=== PATIENT | female | born 1945 | race Caucasian/White ===

== ENCOUNTER 2017-08-22 17:34 | Inpatient (IN) | payer OTHER ==
[~2017-08-22] VITALS: Ht 165.1 cm; Wt 47.4 kg
--- NOTE | ~2017-08-22 | HC ---
[facility] [place] [address] CONSULTATION Name: DEBORHA KESSLER Room #: 204- ADM IN M.R.#: [id number] Admission: 08/22/17 Attend Phys: Gerard Patel MD Discharge: Date of : 49 Report #: [id number] THIS REPORT FOR: //name// CC: Gerard Patel FAM physician/PCP DATE OF SERVICE: 08/23/2017 ATTENDING PHYSICIAN: Dr. Emerson. CONSULTATION REQUESTED BY: Gerard Patel MD REASON FOR CONSULTATION: Leukocytosis, lactic acidosis. HISTORY OF PRESENT ILLNESS: The patient is a 71-year-old white woman, transferred to [facility] from [facility] where she was again readmitted on 08/16/2017 with nausea, vomiting, diarrhea with recurrent positive C. difficile toxin assay, leukocytosis, lactic acidosis, seen by Dr. Arnie Ulrich and subsequently because of failure to improve transferred to [facility]. During that hospitalization, the patient was found to have an abnormal CT scan of the chest with bilateral pleural effusion, possible atelectasis, pneumonia. She also has a positive stool for C. difficile toxin assay. The CT scan of abdomen and pelvis revealed diverticulosis, but no diverticulitis. An echocardiogram is abnormal and finding of ventricular wall dysfunction is detected. Her lactic acidosis improved, but persisted for several days despite antibiotics and fluids. At present, the patient is mainly complaining of total anorexia and some 20+ pound weight loss. She is unable to tolerate much of anything by mouth. She has intermittent abdominal pain and diarrheal problem has improved compared to previously. Workup had also included EGD and colonoscopy and the findings were normal. DRUG ALLERGIES: CIPRO, CODEINE, SULFA. PAST MEDICAL HISTORY: Cardiomyopathy, unclear etiology, ejection fraction 30-35% with left ventricular wall motion abnormalities, mitral regurgitation, moderate tricuspid regurgitation. She has recurrent Clostridium difficile colitis. She is status post hysterectomy and cholecystectomy in the past. She was diagnosed some 10-12 years ago to have Crohn disease by her primary physician. She has no recollection as to whether a cementer helper was involved in that diagnosis. She is status post bilateral cataract surgery, kyphoplasty, tubal ligation. SOCIAL HISTORY: See H and P. [facility] [address] [place] [address] CONSULTATION Name: DEBORAH KESSLER Room #: 204-[facility] IN .R.#: [id number] Admission: 08/22/17 Attend Phys: Gerard Patel MD Discharge: Date of : 49 Report #: [id number] FAMILY HISTORY: See H and P. REVIEW OF SYSTEMS: As above. PHYSICAL EXAMINATION: GENERAL: Chronically ill-appearing woman. VITAL SIGNS: Temperature 97.4, pulse 79, respirations 18, BP 152/108, height 5 feet 5 inches, weight 116.6 pounds, O2 saturation 96% on room air. HEENMT: Head normocephalic, atraumatic. Pupils reactive. Mouth: Dry mucous membranes, coated tongue. No thrush. NECK: Supple, no thyromegaly. BREASTS: Deferred. LUNGS: Decreased breath sounds at bases. HEART: S1, S2. No gallops. ABDOMEN: Infraumbilical laparotomy scar, soft, no palpable masses, no megaly, no abnormal tenderness. EXTREMITIES: No clubbing, cyanosis. NEUROLOGIC: Grossly within normal limits. LABORATORY DATA: At the referring hospital, on 08/16/2017, the stool is positive for C. difficile toxin. BUN and creatinine were essentially normal. The patient has lactic acidosis with lactic acid of 4.4 millimoles per liter on 08/21/2017. Here at [facility], the laboratory data indicate the following: Sodium 131, potassium 2.9, CO2 of 19, BUN 16, creatinine 1.3, glucose 126, alkaline phosphatase 354, albumin 1.9 g/dL. Lactic acid remains elevated at 3.4 and 3.8 millimoles per liter. White blood cell count 13,400, hemoglobin 12.9 g/dL, platelets 224,000. The white blood cell count differential revealed 86% segmented neutrophils. TSH normal. No radiology evaluation available at [facility], I will review findings from [facility] with radiologist. ASSESSMENT: 1. Persistent leukocytosis, question etiology. 2. Lactic acidosis. 3. Severe malnutrition. 4. Recurrent Clostridium difficile colitis. 5. Colonic diverticula. 6. Nausea, question etiology, question secondary to lactic acidosis versus Flagyl. 7. Pleural effusion and possible pneumonia. 8. Cardiomyopathy with abnormal echocardiogram and wall motion abnormalities. SUGGESTIONS AND RECOMMENDATIONS: The patient not toxic looking and abdomen not tender, consequently favor discontinuation of Flagyl, which may worsen her nausea. I will review CT scan chest, abdomen and pelvis and for time being should continue coverage with Zosyn. We will continue coverage with vancomycin [facility] [address] [place] [address] CONSULTATION Name: DEBORAH KESSLER Room #: 204-P ADM IN M.R.#: [id number] Admission: 08/22/17 Attend Phys: Gerard Patel MD Discharge: Date of : 49 Report #: [id number] for this recurrent Clostridium difficile colitis. Monitor ESR, CRP, procalcitonin. Since she has cardiomyopathy and possible coronary artery disease, possibility of ischemic bowel must be entertained and this must be ruled out. Dr. Patel, thank you for requesting my suggestions in the care of your patient. <ELECTRONICALLY SIGNED> By: Ramone Hoang MD 08/24/17 1151 1113 1445 Ramone Hoang MD /nt
--- NOTE | ~2017-08-22 | CNG ---
[facility] [place] [address] CYTO-NONGYN REPORT PROCEDURE Name: DEBORAH KESSLER Room #: 204-P [facility] IN M.R.#: [id number] Admission: 08/22/17 Date of : 49 Discharge: 08/28/17 Report #: [id number] Path Case #: [id number] CYTOPATHOLOGY REPORT COLLECTION DATE: 08/26/2017 RECEIVED DATE: 08/28/2017 SUBMITTING PHYS: Dr. Gena Jose OTHER PHYS: Dr. Anurag Patel M.D. CLINICAL HISTORY: Sepsis, weight loss, decreased appetite, diarrhea, SOA, pneumonia SPECIMEN(S) RECEIVED: A.Pleural fluid * * * * * * * * * * * * FINAL DIAGNOSIS: A. Pleural fluid: - No malignant cells identified. Scant cellularity. Few reactive mesothelial cells are present. PATHOLOGIST: Yumiko Guerrero M.D. REPORT ELECTRONICALLY SIGNED BY: Yumiko Guerrero M.D. DATE/TIME: 08/29/2017 13:31 * * * * * * * * * * * * GROSS PATHOLOGY: A. Pleural fluid: The specimen is submitted unfixed, labeled "Deborah Kessler". Received by the Cytology Department is 20 mL of clear yellow fluid. One ThinPrep slide and a formalin fixed cell block were prepared. (lg 08.28.2017) TRACTOR TRAILER TECHNICIAN(S): LEON Mendoza([facility]) INITIAL CPT CODE(S): A; 83870, 69588 Professional services performed by [facility] at [facility] [address] , [place] [address] Technical services performed by [facility] at [address] [place] [address]., [address], [place] [address]. [facility] [address] [place] [address], [address] [place] [address] [facility] [address] [place] [address] CYTO-NONGYN REPORT PROCEDURE Name: DEBORAH KESSLER Room #: 204-P [facility] IN M.R.#: [id number] Admission: 08/22/17 Date of : 49 Discharge: 08/28/17 Report #: [id number] Path Case #: [id number] PHONE: [phone] DIRECTOR: Luis Carlos Alamo M.D. * * * END OF REPORT * * *
--- NOTE | ~2017-08-22 | HC ---
[facility] [place] [address] CONSULTATION Name: DEBORAH KESSLER Room #: 204-P [facility] IN M.R.#: [id number] Admission: 08/22/17 Attend Phys: Gerard Patel MD Discharge: 08/28/17 Date of : 47 Report #: [id number] THIS REPORT FOR: //name// CC: Gerard Patel [facility] physician/PCP DATE OF SERVICE: 08/23/2017 REASON FOR CONSULTATION: Pleural effusions. IMPRESSION: 1. Pleural effusions. 2. Probable chronic obstructive pulmonary disease. 3. Tobacco use. 4. Cardiomyopathy. 5. Clostridium difficile. 6. Hypertension. 7. Question confusion. 8. Protein calorie malnutrition. 9. Lactic acidosis. PLAN: 1. CT head, chest x-ray, may do decubitus films, aerosol therapy. 2. DVT and ulcer prophylaxis per primary. HISTORY OF PRESENT ILLNESS: A 71-year-old female with history of cardiomyopathy, was at [facility] and treated for C. diff, had EGD, colonoscopy showed inflammation, has had progressive lower extremity edema. The patient with progressive shortness of breath. No history of DVT or pulmonary embolus. No sputum production. PAST MEDICAL HISTORY: ALLERGIES: TO SULFA, CODEINE AND CIPRO. MEDICATIONS: Include Pepcid, DuoNeb, Zosyn, albuterol, metoprolol. PAST SURGICAL HISTORY: Surgeries in the past include tubal ligation, cholecystectomy, D and C, kyphoplasty, bilateral cataract repair. FAMILY HISTORY: Heart disease, COPD, diabetes, cancer. SOCIAL HISTORY: Positive tobacco. Rare EtOH. No drugs of abuse. PHYSICAL EXAMINATION: VITAL SIGNS: Temperature 98.6, pulse 76, respirations 18, BP 159/110. EYES: Negative icterus. [facility] [address] [place] [address] CONSULTATION Name: DEBORAH EKSSLER Room #: [facility] IN .R.#: [id number] Admission: 08/22/17 Attend Phys: Gerard Patel MD Discharge: 08/28/17 Date of : 47 Report #: [id number] NECK: Trachea midline. LUNGS: Decreased. Few crackles. HEART: Regular. ABDOMEN: Bowel sounds present, distended. EXTREMITIES: Showed positive edema. LABORATORY DATA: TSH 0.495. White count 13.4, hemoglobin 12.9, platelets 224. CRP 14.6. BNP 59,716. ESR 7. Procalcitonin 0.22. Reviewed CT and chest x-ray with Dr. Jolley. CT head from [facility] had bilateral effusions and previously no definite infiltrate on the right. We will follow closely with you. <ELECTRONICALLY SIGNED> By: Gena Jose MD 09/20/17 2219 2046 2132 A. Guillermo Jose MD /nt
--- NOTE | ~2017-08-22 | HC ---
[facility] [place] [address] CONSULTATION Name: DEBORAH KESSLER Room #: 204-P [facility] IN M.R.#: [id number] Admission: 08/22/17 Attend Phys: Gerard Patel MD Discharge: 08/28/17 Date of : 47 Report #: [id number] THIS REPORT FOR: //name// CC: Gerard Patel [facility] physician/PCP DATE OF SERVICE: 08/28/2017 HISTORY OF PRESENT ILLNESS: The patient is a 71-year-old white female, originally admitted with diarrhea, abdominal pain and sepsis. She was noted to have pleural effusion. She has been diagnosed with recurrent Clostridium difficile colitis. She also has cardiomyopathy and protein-calorie malnutrition. Gastroenterology is involved. She does have dysphagia and is on nectar-thickened liquid diet. She has medical complexity with generalized debilitation. Infectious Disease is involved and she is also being seen by Pulmonary Medicine with bilateral effusions, right was tapped, noted to look like a transudate. We are seeing her in rehabilitation medicine consultation. PAST MEDICAL HISTORY: Osteoarthritis, hypertension, irritable bowel syndrome, anxiety, depression, compression fracture. PAST SURGICAL HISTORY: Bilateral cataract repair, cholecystectomy, bilateral tubal ligation, D and C, and kyphoplasty. ALLERGIES: SULFA, CIPRO AND CODEINE. MEDICATIONS: Please see the full medication listing. SOCIAL HISTORY: She lives in a mobile home, 5 steps and neighbors involved. Apparently estranged from her daughter. HABITS: Tobacco 1 pack of cigarettes per day, smoking since the age of 40. Denies any drug usage. FAMILY HISTORY: Significant for COPD, coronary artery disease in her mother, CHF in her mother. REVIEW OF SYSTEMS: Complains of some shortness of breath with increased activity. No current complaints of abdominal pain. No chest pain. Denied any focal extremity pain complaints. Does not like the current diet. Complains of overall generalized weakness. PHYSICAL EXAMINATION: GENERAL: A 71-year-old, rather small statured, thin, white female in no obvious distress. VITAL SIGNS: Last recorded temperature 36.5, pulse 80, respirations 18, blood [address] [address] CONSULTATION Name: DEBORAH KESSLER Room #: 204-P [facility] IN M.R.#: [id number] Admission: 08/22/17 Attend Phys: Gerard Patel MD Discharge: 08/28/17 Date of : 47 Report #: [id number] pressure 162/86. NEUROLOGIC: She is alert, will follow basic 1 step commands. Facies appeared to be symmetric. She has functional range of motion of both upper extremities with strength grade 4-/5. DTRs are trace to 1. Tone appeared to be intact. Lower extremities, no focal calf swelling, functional range of motion with strength grade 4- to 3+/5. DTRs are trace to 1. No significant distal lower extremity edema. She is contact guard for sit to stand. She did ambulate 25 feet min assist with a front-wheeled walker. ASSESSMENT: A 71-year-old white female with the following problem list: 1. Medical complexity with generalized debilitation. 2. Dysphagia, currently on mechanical soft nectar-thickened liquids. 3. Bilateral effusions with the right tapped. 4. Clostridium difficile colitis. 5. Cardiomyopathy. 6. Protein-calorie malnutrition. PLAN: The patient is a candidate for an acute in-hospital and inpatient rehabilitation stay. She does have significant medical complexity and is being followed by multiple consulting physicians with Infectious Disease, Pulmonary Medicine as well as Internal Medicine and Gastroenterology involved. She does have dysphagia noted with the nectar-thickened liquids. We will check on bed availability issues and follow along regarding potential acute inpatient rehabilitation transfer. <ELECTRONICALLY SIGNED> By: Johny Goins MD 09/29/17 1408 1204 8140 Johny Goins MD /nt
--- NOTE | ~2017-08-22 | H ---
[facility] [place] [address] HISTORY AND PHYSICAL Name: DEBORAH KESSLER Room #: 204-P ADM IN M.R.#: [id number] Admission: 08/22/17 Attend Phys: Gerard Patel MD Discharge: Date of : 47 Report #: [id number] THIS REPORT FOR: //name// CC: FAM physician/PCP Anurag Emerson DATE OF SERVICE: 08/22/2017 ATTENDING PHYSICIAN: Dr. Patel. PRIMARY CARE PHYSICIAN: Dr. Anurag Leyva. CHIEF COMPLAINT: Diarrhea and new congestive heart failure. HISTORY OF PRESENT ILLNESS: The patient is a 71-year-old female, who has been admitted in [place] for the last few days, initially for diarrhea. She ended up having C. diff. She does have a history of C. diff in early July after taking antibiotics the end of June. She had been off Flagyl for a while and at some point had an EGD and colonoscopy and her test from the colonoscopy did not show any further C. diff. She says she has had diarrhea for the last 2-1/2 months and a 27-pound weight loss associated with it. She has had decreased appetite with anorexia. When she was admitted at [place], she had severe protein-calorie malnutrition. It was also mentioned that she had some ketosis, felt to be due to starvation and a failure to thrive picture. She tested positive again for C. diff during that admission. She states she has been incontinent of small amounts of loose stools at least 10 times in the last 24 hours. She is being treated with IV Flagyl and oral vancomycin. She also developed mild acute kidney injury. Her RADHA inhibitor was discontinued. For some reason or another, she had an echocardiogram which ended up showing an EF of 35% with severe mitral regurgitation, this was new onset. She had been having some lower extremity edema. Her CT of the abdomen done at [place] showed bilateral pleural effusions or pneumonia with subcutaneous edema versus early anasarca or congestive heart failure, in the abdomen there were no signs of obstruction. The patient denies any history of CHF or coronary artery disease. She has not been having any chest pain. She denies any shortness of breath. She has had cough and was started on Zosyn based on the chest x-ray and CT findings for pneumonia. Blood cultures had been negative. Her lactate has been increasing over the last few days, was up to 5.6 today and her white blood cell count is 16.5. She had been on Zosyn as well as the treatment for C. diff. She was transferred here for heart failure and possible renal evaluation. PAST MEDICAL HISTORY: Osteoarthritis, hypertension, IBS, anxiety, depression, compression fracture. PAST SURGICAL HISTORY: Bilateral cataract repair, cholecystectomy, bilateral tubal ligation, D and C, and kyphoplasty. [facility] [address] [place] [address] HISTORY AND PHYSICAL Name: DEBORAH KESSLER Room #: 204-P ADM IN M.R.#: [id number] Admission: 08/22/17 Attend Phys: Gerard Patel MD Discharge: Date of : 49 Report #: [id number] ALLERGIES: SULFA, CIPRO AND CODEINE. HOME MEDICATIONS: Per [facility], she was currently on Zosyn, oral vancomycin, IV Flagyl, AA nebulizer treatment, heparin for prophylaxis, IV hydralazine, metoprolol 50 mg p.o. b.i.d., Tylenol p.r.n., Ativan 1 mg q.6 hours p.r.n., BuSpar 7.5 mg b.i.d., sodium bicarbonate 50 mEq in D5W at 100 mL an hour, lactobacillus b.i.d., Zofran p.r.n. and famotidine mg p.o. daily. SOCIAL HISTORY: The patient is a . She lives at home alone. She smokes 1 pack of cigarettes per day. She has been smoking since the age of 40. Denies any drug use. She drinks alcohol rarely. She normally ambulates with a walker. FAMILY HISTORY: Significant for COPD, coronary artery disease in her mother, and congestive heart failure in her mother. REVIEW OF SYSTEMS: Twelve-point review of systems was reviewed with the patient and otherwise negative unless stated in the HPI. PHYSICAL EXAMINATION: GENERAL: The patient is an alert female, in no acute distress. VITAL SIGNS: Temperature 36.4, heart rate 81, respirations 20, blood pressure 161/104, oxygen 100% on room air. HEENT: PERRLA. Sclerae nonicteric. Oral mucosa is pink and dry. NECK: Supple, no JVD noted. CARDIAC: Normal S1, S2. No murmurs, rubs or gallops. RESPIRATORY: Breath sounds are clear bilaterally. She is diminished in both bases. Breathing is nonlabored. ABDOMEN: Round, soft, nontender, nondistended with positive bowel sounds. VASCULAR: She does have 1+ bilateral lower extremity edema. Pedal pulses are 2+. NEUROLOGIC: The patient is alert and oriented x 3. Speech is clear. She is answering questions appropriately and able to follow commands. She is moving all extremities equally. I did not have a gait assessed. PSYCHIATRIC: The patient is calm and cooperative, but overall very flat affect. ASSESSMENT AND PLAN: 1. Clostridium difficile colitis. Continue with Flagyl and vancomycin oral. We will try to get another Clostridium difficile specimen and Infectious Disease is consulted. 2. New onset congestive heart failure, this is noted on echo today. Consult Cardiology. Continue metoprolol and previously her RADHA inhibitor had been discontinued since her creatinine was rising. 3. Acute kidney injury. The patient denies any prior kidney problems. We will continue with gentle hydration since she does have heart failure and repeat labs in the morning. [facility] [address] [place] [address] HISTORY AND PHYSICAL Name: DEBORAH KESSLER Room #: 204-P ADM IN .R.#: [id number] Admission: 08/22/17 Attend Phys: Gerard Patel MD Discharge: Date of : 49 Report #: [id number] 4. Leukocytosis and lactic acidosis. This may be due to infection. We will continue with Zosyn for pneumonia and treatment for Clostridium difficile and consult Infectious Disease. Check blood cultures. 5. Protein-calorie malnutrition. It was mentioned the patient may have failure to thrive. She has anorexia and states nothing sounds good, she does not feel like eating. We will have dietary evaluate. It was mentioned in [place] that she may need a Dobhoff placed for tube feeding temporarily. 6. Tobacco abuse. The patient has been advised to quit. She denies the need for nicotine patch. 8. Deep venous thrombosis prophylaxis. Place SCDs. We will continue to follow the patient closely throughout the hospitalization and make changes based on clinical status. <ELECTRONICALLY SIGNED> By: TERA Samaniego 08/23/17 0757 [id number] 0644 TERA Samaniego /delmi
--- NOTE | ~2017-08-22 | CATHLAB ---
[facility] [place] [address] INVASIVE PROCEDURE REPORT Name: DEBORAH KESSLER Room #: 204-P ADM IN M.R.#: [id number] Admission: 08/22/17 Attend Phys: Gerard Patel MD Discharge: Date of : 49 Date of Service: 08/24/17 1428 Report #: [id number] THIS REPORT FOR: //name// APPROVED REPORT Patient Details Patient Status: In-Patient Room #: The patient is a 71 year-old female Event Personnel Ramana Elkins Lsat Instructor, Betty Silva, Johny Mortensen Penny, Wes RN Procedures Performed Left Heart Cath w/or w/o Coronaries [id number] [facility] Procedure Narrative The Right Groin^ was infiltrated with 1% Lidocaine subcutaneous anesthesia. A PINNACLE 4FR Sheath #[id number] sheath was inserted into the RFA^. Coronary angiography was performed using coronary diagnostic catheters. The right coronary system was accessed and visualized with a JR4 catheter. The left coronary system was accessed and visualized with a JL4 catheter. The left ventricle was accessed and visualized with a PIGTAIL catheter. Left ventricular/Aortic Valve gradient assessed via catheter pullback. Left ventriculogram was performed in 30 degree projection. Hemostasis was obtained with manual pressure following sheath removal without any complications. The patient tolerated the procedure well and there were no complications associated with the procedure. There was no hematoma. Intraoperative Conscious Sedation Sedation start time: 12:42 Case end Time: 12:55 Versed 2 mg Fluoro Time: 2.09 minutes Dose: DAP 1288.30 cGycm2 171 mGy Contrast Type and Amount: Omnipaque 40 ml Coronary Angiography The patient's coronary anatomy is right dominant. Diagnostic Cath Left Main Normal origin moderate caliber bifurcates that anterior [facility] [address] [place] [address] INVASIVE PROCEDURE REPORT Name: KELY KESSLERA Room #: 204-P [facility] IN ..#: [id number] Admission: 08/22/17 Attend Phys: Gerard Patel MD Discharge: Date of : 49 Date of Service: 08/24/17 1428 Report #: [id number] descending left circumflex free of high-grade disease LAD Moderate caliber type III vessel which gives rise to septal and diagonal branch early on. The vessel then continues in the anterior interventricular sulcus giving rise to diagonal and septal branches as it terminates in the posterior aspect of the left ventricle. No significant high-grade lesions are identified although the LAD tapers in its course Diagonal 1 Small-caliber vessel that trifurcates in its midportion into smaller branches. One of the branches appears to have some diffuse disease it is quite small at less than half a millimeter in diameter Circumflex Moderate to large caliber vessel courses in the AV groove giving rise to a lateral wall and a posterior lateral wall marginal. No significant high-grade lesions are noted in its course OM1 Moderate caliber vessel coursing along the lateral aspect of ventricle without significant stenotic lesions terminal third is tortuous but without stenosis OM2 Moderate caliber vessel coursing posteriorly towards the apex terminates short of the apex but no significant high-grade obstructive lesions present Right Coronary Moderate caliber vessel of normal origin and courses in the AV groove. The acute margin he gives rise to a miniscule RV marginal branch. The vessel proper continues posterior to the crux where a posterior descending artery arises is a small in size as is the distal circulation but no high-grade obstructive lesions present R PDA Small-caliber vessel without significant obstructive lesions Left Ventriculography Left Ventriculography was not performed. Overall left ventricular systolic function is depressed with a segment bent of hypokinesis involving the mid anterior wall Hemodynamics The aortic pressure is 156/82 mmHg with a mean of 110 mmHg. The left ventricular pressure is 166/20 mmHg with a mean of mmHg. The left ventricular end diastolic pressure is 39 mmHg. There was no gradient across the aortic valve upon pullback. Pullback from the left ventricle to the aorta revealed no gradient across the aortic valve. Conclusion 1. Minimal coronary artery disease principally involving a diminutive [facility] [address] [place] [address] INVASIVE PROCEDURE REPORT Name: DEBORAH KESSLER Room #: 204-P ADM IN M.R.#: [id number] Admission: 08/22/17 Attend Phys: Gerard Patel MD Discharge: Date of : 49 Date of Service: 08/24/17 1428 Report #: [id number] branch of the first diagonal branch of the LAD 2. Decreased left ventricular systolic function with a segmental abnormalities of the mid anterior wall 3. Abnormal he would dynamic so with markedly elevated left ventricular end-diastolic pressure <ELECTRONICALLY SIGNED> By: Ramana Elkins MD 08/24/17 1428 1428 1428 Ramana Elkins MD /INF
[2017-08-22 20:10] VITALS: BP 161/104
[2017-08-23 00:45] VITALS: BP 147/89
[2017-08-23 02:46] LABS: HEMATOCRIT 37.4 % (37.0-47.0); HEMOGLOBIN 12.9 gm/dL (12.0-15.0); MCH 32.1 pg (26.0-34.0); MCHC 34.5 g/dL (28.0-37.0); MCV 93.1 fL (80.0-100.0); PLATELET COUNT 224 thou/uL (150-400); RBC 4.02 mil/uL (4.20-5.00); WBC 13.4 thou/uL (4.0-11.0)
[2017-08-23 02:54] LABS: ALBUMIN 1.9 g/dL (3.4-5.0); CALCIUM 7.8 mg/dL (8.5-10.1); CREATININE 1.3 mg/dL (0.6-1.0); MAGNESIUM 1.2 mg/dL (1.8-2.4); TOTAL PROTEIN 5.3 g/dL (6.4-8.2)
[2017-08-23 02:58] LABS: POTASSIUM 2.9 mmol/L (3.5-5.1)
[2017-08-23 04:00] VITALS: BP 130/82
[2017-08-23 06:30] LABS: ABSOLUTE NEUTROPHILS 11.5 thou/uL (1.4-8.2); ATYPICAL LYMPHS 2 %; NUCLEATED RBCS 1 /100WBC
[2017-08-23 07:43] VITALS: BP 152/108
[2017-08-23 13:21] VITALS: BP 157/110
[2017-08-23 16:40] VITALS: BP 159/110
[2017-08-23 17:57] LABS: PCO2 21.1 mmHg (35.0-45.0); PO2 100.9 mmHg (80.0-100.0); pH 7.572 (7.360-7.450); sO2 98.4 % (92.0-98.0)
[2017-08-23 20:00] VITALS: BP 160/97
[2017-08-24 01:42] VITALS: BP 150/63
[2017-08-24 03:19] LABS: HEMATOCRIT 35.1 % (37.0-47.0); HEMOGLOBIN 11.7 gm/dL (12.0-15.0); MCH 32.3 pg (26.0-34.0); MCHC 33.3 g/dL (28.0-37.0); MCV 97.1 fL (80.0-100.0); RBC 3.61 mil/uL (4.20-5.00); WBC 10.8 thou/uL (4.0-11.0)
[2017-08-24 03:26] LABS: CALCIUM 7.2 mg/dL (8.5-10.1); CREATININE 1.2 mg/dL (0.6-1.0); POTASSIUM 3.2 mmol/L (3.5-5.1)
[2017-08-24 03:33] LABS: ALBUMIN 1.7 g/dL (3.4-5.0); DIRECT BILIRUBIN 0.4 mg/dL (<0.1-0.3); TOTAL BILIRUBIN 0.9 mg/dL (<0.1-1.0); TOTAL PROTEIN 4.6 g/dL (6.4-8.2)
[2017-08-24 09:30] LABS: ABSOLUTE NEUTROPHILS 8.6 thou/uL (1.4-8.2); METAMYELOCYTES 1 %; MYELOCYTES 1 %
[2017-08-24 11:51] VITALS: BP 135/91
[2017-08-24 14:22] LABS: PLATELET COUNT 194 thou/uL (150-400)
[2017-08-24 14:49] VITALS: BP 147/98
[2017-08-24 20:33] VITALS: BP 157/95
[2017-08-25 04:00] VITALS: BP 150/95
[2017-08-25 04:26] LABS: HEMOGLOBIN 11.2 gm/dL (12.0-15.0); MCH 32.3 pg (26.0-34.0); MCHC 34.9 g/dL (28.0-37.0); MCV 92.5 fL (80.0-100.0); RBC 3.46 mil/uL (4.20-5.00); RDW 14.3 % (10.5-14.5)
[2017-08-25 04:41] LABS: ALBUMIN 1.6 g/dL (3.4-5.0); CALCIUM 7.5 mg/dL (8.5-10.1); CREATININE 0.8 mg/dL (0.6-1.0); TOTAL PROTEIN 4.8 g/dL (6.4-8.2)
[2017-08-25 04:45] LABS: POTASSIUM 2.8 mmol/L (3.5-5.1)
[2017-08-25 13:16] LABS: URINE BILIRUBIN NEGATIVE (Negative); URINE BLOOD NEGATIVE (Negative); URINE CLARITY CLEAR; URINE COLOR YELLOW; URINE GLUCOSE-RANDOM* NEGATIVE (Negative); URINE KETONES NEGATIVE (Negative); URINE LEUKOCYTES-REFLEX NEGATIVE (Negative); URINE NITRITE-REFLEX NEGATIVE (Negative); URINE PROTEIN (DIPSTICK) NEGATIVE (Negative); URINE SPECIFIC GRAVITY 1.025 (1.005-1.035); URINE UROBILINOGEN 0.2 E.U./dl (0.2-1.0)
[2017-08-25 19:36] VITALS: BP 153/93
[2017-08-26 03:42] VITALS: BP 167/97
[2017-08-26 05:34] LABS: HEMATOCRIT 32.2 % (37.0-47.0); HEMOGLOBIN 11.2 gm/dL (12.0-15.0); MCHC 34.8 g/dL (28.0-37.0); PLATELET COUNT 160 thou/uL (150-400); RDW 14.4 % (10.5-14.5); WBC 12.9 thou/uL (4.0-11.0)
[2017-08-26 05:45] LABS: INR 1.2; PROTIME 11.9 Seconds (9.3-11.4)
[2017-08-26 05:47] LABS: CALCIUM 7.1 mg/dL (8.5-10.1); CREATININE 0.9 mg/dL (0.6-1.0); POTASSIUM 3.6 mmol/L (3.5-5.1)
[2017-08-26 07:53] LABS: ABSOLUTE NEUTROPHILS 10.1 thou/uL (1.4-8.2); ANISOCYTOSIS 1+; TARGET CELLS FEW
[2017-08-26 07:54] LABS: HYPOCHROMASIA 1+
[2017-08-26 08:36] LABS: CLARITY CLEAR; COLOR YELLOW; SOURCE RIGHT CHEST; TOTAL VOLUME 53 mL
[2017-08-26 08:57] LABS: BF NUCLEATED CELLS 60; BF RBC 282
[2017-08-26 09:48] LABS: BF MACROPHAGE 66; BF NEUTROPHILS 21
[2017-08-26 11:12] LABS: SOURCE THORACENTESIS
[2017-08-26 19:36] VITALS: BP 134/81
[2017-08-26 23:50] VITALS: BP 143/83
[2017-08-27 04:10] VITALS: BP 160/84
[2017-08-27 05:09] LABS: HEMATOCRIT 29.8 % (37.0-47.0); HEMOGLOBIN 10.3 gm/dL (12.0-15.0); MCH 32.1 pg (26.0-34.0); MCHC 34.7 g/dL (28.0-37.0); MCV 92.3 fL (80.0-100.0); RBC 3.22 mil/uL (4.20-5.00); RDW 14.2 % (10.5-14.5); WBC 12.6 thou/uL (4.0-11.0)
[2017-08-27 05:31] LABS: CREATININE 1.1 mg/dL (0.6-1.0)
[2017-08-27 06:11] LABS: BODY FLUID ALBUMIN 0.3 g/dL (()); BODY FLUID AMYLASE 8 U/L (()); BODY FLUID GLUCOSE 98 mg/dL (()); BODY FLUID LDH 51 IU/L (()); BODY FLUID PROTEIN 0.8 g/dL (())
[2017-08-27 08:00] VITALS: BP 165/96
[2017-08-27 12:00] VITALS: BP 125/73
[2017-08-27 16:00] VITALS: BP 161/87
[2017-08-27 19:39] VITALS: BP 143/78
[2017-08-28 03:01] VITALS: BP 152/91
[2017-08-28 03:42] LABS: CALCIUM 7.4 mg/dL (8.5-10.1); CREATININE 1.1 mg/dL (0.6-1.0); POTASSIUM 3.2 mmol/L (3.5-5.1)
[2017-08-28 08:59] VITALS: BP 162/86
[2017-08-28 11:52] VITALS: BP 101/56
[2017-08-28 12:16] LABS: ALBUMIN 1.7 g/dL (3.4-5.0); DIRECT BILIRUBIN 0.3 mg/dL (<0.1-0.3); TOTAL BILIRUBIN 1.1 mg/dL (<0.1-1.0); TOTAL PROTEIN 4.9 g/dL (6.4-8.2)
[2017-08-28 15:53] VITALS: BP 124/77
[2017-08-28] MEDS ORDERED: VANCOMYCIN HCL10 GM PO (16:31)
[2017-08-28] MEDS ORDERED: DUONEB 2.5-0.5 M3 ML INH (16:31)
[2017-08-28] MEDS ORDERED: ALDACTONE25 MG PO (16:32)
[2017-08-28] MEDS ORDERED: TYLENOL325 MG PO (16:32)
[2017-08-28] MEDS ORDERED: COREG6.25 MG PO (16:32)
[2017-08-28] MEDS ORDERED: LISINOPRIL5 MG PO (16:32)
[2017-08-28] MEDS ORDERED: PROBIOTIC1 EAC1 PO (16:33)
[2017-08-28] MEDS ORDERED: PEPCID20 MG PO (16:33)
[2017-08-28] MEDS ORDERED: ATIVAN1 MG PO (16:33)
[2017-08-28] MEDS ORDERED: BUSPIRONE HCL10 MG PO (16:33)
[2017-08-28] MEDS ORDERED: MUCINEX600 MG PO (16:33)
[2017-08-28] MEDS ORDERED: TORSEMIDE10 MG PO (16:33)
[2017-08-28 17:56] VITALS: BP 124/77
== END 2017-08-28 18:05 | DRG 871 ==
LOC: 2N 17:34
PROVIDERS: Hospitalist; Internal Medicine; Internal Medicine Gastroenterology; Internal Medicine Pulmonary Disease; Nurse Practitioner; Nurse Practitioner Acute Care; Nurse Practitioner Gerontology
DX: A41.9 Sepsis, unspecified organism (principal); J18.9 Pneumonia, unspecified organism; E43 Unspecified severe protein-calorie malnutrition; A04.72 Enterocolitis due to Clostridium difficile, not specified as recurrent; N17.9 Acute kidney failure, unspecified; J90 Pleural effusion, not elsewhere classified; K56.7 Ileus, unspecified; Z68.1 Body mass index [BMI] 19.9 or less, adult; Z98.41 Cataract extraction status, right eye; K57.30 Diverticulosis of large intestine without perforation or abscess without bleeding; M19.90 Unspecified osteoarthritis, unspecified site; F41.9 Anxiety disorder, unspecified; F17.210 Nicotine dependence, cigarettes, uncomplicated; R13.10 Dysphagia, unspecified; E87.6 Hypokalemia; K76.0 Fatty (change of) liver, not elsewhere classified; F32.9 Major depressive disorder, single episode, unspecified; I25.5 Ischemic cardiomyopathy; K52.9 Noninfective gastroenteritis and colitis, unspecified; I11.0 Hypertensive heart disease with heart failure; Z60.2 Problems related to living alone; I50.9 Heart failure, unspecified; Z88.1 Allergy status to other antibiotic agents; Z79.899 Other long term (current) drug therapy; Z88.6 Allergy status to analgesic agent; Z88.8 Allergy status to other drugs, medicaments and biological substances; Z88.2 Allergy status to sulfonamides; Z90.710 Acquired absence of both cervix and uterus; Z90.49 Acquired absence of other specified parts of digestive tract; Z98.42 Cataract extraction status, left eye; Z82.49 Family history of ischemic heart disease and other diseases of the circulatory system; Z83.6 Family history of other diseases of the respiratory system; Z83.3 Family history of diabetes mellitus
CPT/HCPCS: 10081

== ENCOUNTER 2017-08-28 13:28 | Inpatient (IN) | payer OTHER ==
[~2017-08-28] VITALS: Ht 165.1 cm; Wt 49.6 kg
--- NOTE | ~2017-08-28 | H ---
[facility] [place] [address] HISTORY AND PHYSICAL Name: DEBORAH KESSLER Room #: 515-P ADM IN M.R.#: [id number] Admission: 08/28/17 Attend Phys: Johny Goins MD Discharge: Date of : 49 Report #: [id number] THIS REPORT FOR: //name// CC: Johny Goins [facility] physician/PCP DATE OF SERVICE: 08/29/2017 HISTORY AND PHYSICAL/POST-ADMISSION PHYSICIAN EVALUATION HISTORY OF PRESENT ILLNESS: The patient is a 71-year-old white female who was originally admitted to [facility] with diarrhea, abdominal pain and sepsis. She was noted to have a pleural effusion. She was diagnosed with recurrent Clostridium difficile colitis. She also has a cardiomyopathy and protein calorie malnutrition. Gastroenterology has been involved. She has dysphagia and was placed on a nectar thickened liquid diet. She was noted to have medical complexity with generalized debilitation. Infectious Disease was involved and she also was seen by Pulmonary Medicine with bilateral effusions with the right being tapped noted to look like a transudate. Her diet was able to be advanced to thin liquids, although she still needs precautions. She was noted to have had a significant functional decline from her premorbid functional status. She has not been admitted for acute in-hospital inpatient rehabilitation. PAST MEDICAL HISTORY: Includes osteoarthritis, hypertension, irritable bowel syndrome, anxiety, depression, compression fracture. PAST SURGICAL HISTORY: Includes bilateral cataract repair, cholecystectomy, bilateral tubal ligation, D and C, kyphoplasty. ALLERGIES: SULFA, CIPRO, CODEINE. MEDICATIONS: Please see the full medication listing. Each of these was individually reconciled and includes vitamins, herbs and supplements. SOCIAL HISTORY: She lives in a mobile home, 5 steps in with neighbors involved. Apparently estranged from her daughter. HABITS: Tobacco 1 pack per day smoking since the age of 40. Denies any drug usage. FAMILY HISTORY: Significant for COPD, coronary artery disease in her mother, CHF in her mother. REVIEW OF SYSTEMS: No current complaints of abdominal pain. No chest pain, some shortness of breath with increased activity. No focal extremity pain [facility] [address] [place] [address] HISTORY AND PHYSICAL Name: DEBORAH KESSLER Room #: 515-P [facility] IN M..#: [id number] Admission: 08/28/17 Attend Phys: Johny Goins MD Discharge: Date of : 49 Report #: [id number] complaints. Complains of overall generalized weakness. PHYSICAL EXAMINATION: GENERAL: A 71-year-old rather small statured, thin, white female in no obvious distress. VITAL SIGNS: Last recorded temperature 97.7, pulse 72, respirations 18, blood pressure 129/63. The patient is alert. HEENT: Appeared to be benign. Cranial nerves are grossly intact. Facies are symmetric. CHEST: Some decreased breath sounds throughout. CARDIOVASCULAR: Sounded regular rate and rhythm. ABDOMEN: Bowel sounds positive, nontender. GENITOURINARY AND RECTAL: Deferred. EXTREMITIES: She has functional range of motion of both upper extremities with strength grade 4-/5. DTRs are trace to 1. Tone appeared to be intact. Lower extremities, no focal calf swelling, functional range of motion with strength grade 4- to 3+/5. DTRs are trace to 1. No significant distal lower extremity edema. She is contact guard for sit to stand and has been ambulating a short distance with min assist. ASSESSMENT: A 71-year-old white female with the following problem list: 1. Medical complexity with generalized debilitation. 2. Dysphagia has been advanced and thin liquids, but with precautions. 3. Bilateral effusions with the right being tapped. 4. Clostridium difficile colitis. 5. Cardiomyopathy. 6. Protein calorie malnutrition. PLAN: From a postadmission physician evaluation perspective, there are no relevant changes since the preadmission screening. Please see the above review of prior and current medical and functional conditions and comorbidities. Please see the patient's previous and current functional status. As far as risk of complications, the patient has multiple medical comorbidities as noted above. Initial plan of care involves the interdisciplinary acute inpatient rehabilitation program with goal of maximizing her functional independence, so she can hopefully return back to the home setting. Prognosis is reasonably good with estimated length of stay probably at least 7-10 days and potentially longer if warranted. The measurable functional goals would be for her to become modified independent with transfers, mobility, ADLs at least at the walker level. Potential barriers would include her multiple medical comorbidities and decreased functional status. The patient meets diagnostic criteria for an acute in-hospital inpatient rehabilitation stay. She meets medical necessity criteria. We will have the multiple help desk consultant physicians continue to follow while she is on the rehab [address] [address] HISTORY AND PHYSICAL Name: DEBORAH KESSLER Room #: 515-P [facility] IN M.R.#: [id number] Admission: 08/28/17 Attend Phys: Johny Goins MD Discharge: Date of : 49 Report #: [id number] thomas. She does have the tolerance for therapies and has appropriate discharge goals back to the home setting. <ELECTRONICALLY SIGNED> By: Johny Goins MD 09/01/17 1306 0907 0933 Johny Goins MD /[facility]
--- NOTE | ~2017-08-28 | PLAN ---
[facility] [place] [address] [address] REHAB UNIT PLAN OF CARE Name: DEBORAH KESSLER Room #: 515-P [facility] IN M.R.#: [id number] Admission: 08/28/17 Attend Phys: Johny Goins MD Discharge: 09/12/17 Date of : 49 Report #: [id number] THIS REPORT FOR: //name// CC: Johny Goins [facility] physician/PCP DATE OF SERVICE: 08/30/2017 PROGRESS NOTE/OVERALL PLAN OF CARE The patient is seen back today in followup. She was in no distress. Last recorded temperature 36.4, pulse 74, respirations 20, and blood pressure 121/67. No focal calf swelling. She has been working in therapies with transfers, mod assist. Gait is min assist 15 feet with a front-wheeled walker. Lower body dressing is min assist. She does have mild comprehensive deficits. ASSESSMENT: A 61-year-old white female with the following problem list: 1. Medical complexity with generalized debilitation. 2. Dysphagia, which was advanced to thin liquids. 3. Bilateral effusions with the right that was tapped. 4. Clostridium difficile colitis. 5. Cardiomyopathy. 6. Protein-calorie malnutrition. PLAN: The overall plan of care is based on the preadmission screen, post-admission physician evaluation and information garnered from therapy assessments. 1. Estimated length of stay is at least 7-10 days. 2. Medical prognosis is reasonably good. 3. Anticipated interventions includes the interdisciplinary acute inpatient rehabilitation program with the goal of maximizing the patient's functional independence, so that she can hopefully return back to the home setting. PT, OT, rehab nursing assisting regarding medication management, skin care prophylaxis, bowel and bladder issues, and nursing education. We will have the small business consultant physicians continue to follow. Case management and the rehab therapy team are involved as well. 4. Anticipated functional outcomes would be for the patient to become modified independent ideally at least ambulatory with a walker and able to do her own ADLs, so she can return back to the home setting. We also have speech therapy involved assessing regarding her prior noted dysphagia as well as comprehension and cognitive issues. 5. Expected therapy by discipline includes PT, OT, and speech 1 hour per day each five days a week throughout the duration of the acute inpatient rehabilitation stay. We may be able to taper the speech therapy depending upon how she does [place] [address] REHAB UNIT PLAN OF CARE Name: DEBORAH KESSLER Room #: 515-P DIS IN M.R.#: [id number] Admission: 08/28/17 Attend Phys: Johny Goins MD Discharge: 09/12/17 Date of : 49 Report #: [id number] The patient did missed minutes on 09/11/2017 secondary to fatigue and frustration with her discharge plan. <ELECTRONICALLY SIGNED> By: Johny Goins MD 09/18/17 1226 2101 0131 Johny Goins MD /PAMELLA
--- NOTE | ~2017-08-28 | D ---
[facility] [address] [place] [address] DISCHARGE SUMMARY Name: DEBORAH KESSLER Room #: 515-P [facility] IN M.R.#: [id number] Admission: 08/28/17 Attend Phys: Johny Goins MD Discharge: 09/12/17 Date of : 49 Report #: [id number] THIS REPORT FOR: //name// CC: Johny Goins [facility] physician/PCP DATE OF SERVICE: 09/12/2017 ADDENDUM The patient did missed minutes on 09/11/2017 secondary to fatigue and frustration with her discharge plan. <ELECTRONICALLY SIGNED> By: Johny Goins MD 09/18/17 1226 1349 1408 Johny Goins MD /PMT
--- NOTE | ~2017-08-28 | HC ---
[facility] [place] [address] CONSULTATION Name: DEBORAH KESSLER Room #: 515-P [facility] IN M.R.#: [id number] Admission: 08/28/17 Attend Phys: Johny Goins MD Discharge: Date of : 49 Report #: [id number] THIS REPORT FOR: //name// CC: Johny Goins MD [facility] physician/PCP HISTORY OF PRESENT ILLNESS: This patient is seen in consultation regarding a normochromic normocytic anemia. She was admitted emergently to [facility] with complaints of diarrhea, abdominal pain and found to have recurrent C. diff colitis in the setting of sepsis and lactic acidosis. She states that she has not had a prior history of being anemic. She did undergo earlier endoscopies with upper and lower studies in [place] in July. At that time, laboratory studies were performed for her history of an unexplained 23-pound weight loss and I am trying to obtain those reports. She is unaware of any blood loss either with her diarrhea or now recently she is on rehab, still receiving oral vancomycin. PAST MEDICAL HISTORY: Significant for osteoarthritis, medically managed hypertension, irritable bowel syndrome, anxiety, depression and a previous compression fracture. PAST SURGICAL HISTORY: She has undergone prior cholecystectomy, tubal ligation, kyphoplasty and bilateral cataract repair. MEDICATIONS: As listed on the MFR. ALLERGIES: SULFA, CIPRO AND CODEINE. SOCIAL HISTORY: She is a and lives in a mobile home. She is a cigarette smoker and has no illicit drug use. FAMILY HISTORY: Positive for coronary artery disease in her mother. REVIEW OF SYSTEMS: Negative for sweats, chills, fevers, adenopathy or masses detected prior to recent hospitalization. She does fatigue more readily now with her current anemia. PHYSICAL EXAMINATION: GENERAL: Shows alert white female who is in isolation because of her C. diff. She is sitting up in bed. HEENT: Shows her neck to be supple. CHEST: Clear. CARDIOVASCULAR: Normal S1, S2. ABDOMEN: Shows no palpable spleen. [address] [address] CONSULTATION Name: DEBORAH KESSLER Room #: [address] [place] [address] IN M.R.#: [id number] Admission: 08/28/17 Attend Phys: Johny Goins MD Discharge: Date of : 49 Report #: [id number] EXTREMITIES: No clubbing, cyanosis or edema. NEUROLOGIC: No focal localizing signs. PSYCHIATRIC: Not agitated or confused. SKIN: Normal turgor. LYMPHATICS: No palpable supraclavicular adenopathy. LABORATORY STUDIES: Reviewed and included earlier CBC, which showed early forms with metamyelocytes and myelocytes along with atypical lymphs and a nucleated red cell approximately 2 weeks ago. Her indices are normochromic normocytic and her reticulocytes are inappropriately low indicating she is hypoproliferative. ASSESSMENT: Normocytic normochromic anemia. PLAN: Erythropoietin level is pending regarding possible anemia of chronic disease ____ early forms also want to rule out a myelophthisic process and did a peripheral blood flow for the atypical lymphocytes detected earlier, though she does not have a predominant lymphocytosis. Her earlier thrombocytopenia has resolved and may have been related to her sepsis. We will await the previous laboratory reports that have been requested from [place] in July regarding a prior CBC. She understands that the current studies are in processing and we will follow along with you. Thanks for asking me to participate in her care and allowing us to see her in consultation. <ELECTRONICALLY SIGNED> By: Zoey Soriano MD 09/12/17 0916 1509 2152 Zoey Soriano MD /nt
--- NOTE | ~2017-08-28 | HC ---
[facility] [place] [address] CONSULTATION Name: DEBORAH KESSLER Room #: 515-P [facility] IN M.R.#: [id number] Admission: 08/28/17 Attend Phys: Johny Goins MD Discharge: Date of : 49 Report #: [id number] THIS REPORT FOR: //name// CC: Johny Goins [facility] physician/PCP DATE OF SERVICE: 09/02/2017 NEUROBEHAVIORAL STATUS EXAMINATION AGE: 71. ATTENDING PHYSICIAN: Johny Goins MD PEPPER CUTTER: Maxwell Glasgow, PhD CLINICAL PRESENTATION: The patient is a 71-year-old female admitted to the [facility] rehab unit for comprehensive inpatient rehabilitation program to improve functional mobility, activities of daily living and self-care and mental status secondary to deficits from medical complexity with generalized debility. Her diagnosis also includes dysphagia, bilateral effusions with right being tapped, C. diff, cardiomyopathy, and protein calorie malnutrition. A complete description of her medical condition and history can be found in her medical record. Neuropsychological consultation was requested to provide assistance in the assessment of cognitive and emotional status and to provide recommendations and services. The patient is an reliable historian. She reports having had 3 children and being 3 years ago. 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 There is no reported history of treatment for depression or anxiety or history of alcohol/drug abuse. She smoked about one pack a day of cigarettes. Prior to her hospitalization, she reported being independent with instrumental activities of daily living. However, I am uncertain about the accuracy of that self report. TECHNIQUES UTILIZED: Clinical interview, review of medical records, staff consultation and behavioral observation, mini mental status exam 2 standard version, clock drawing, verbal fluency assessment and brief abstract reasoning test. EXAMINATION FINDINGS: The patient was alert and cooperative with the assessment. She became irritable as the interview progressed. There is no reported difficulty with memory, word finding or other cognitive symptoms. She indicates that her appetite is reduced and feels fatigued and tired. Subjective depression is also reported. She states that she tires easily. Sleep is reported as within normal limits. [facility] [address] [place] [address] CONSULTATION Name: DEBORAH KESSLER Room #: 515-P [facility] IN M.R.#: [id number] Admission: 08/28/17 Attend Phys: Johny Goins MD Discharge: Date of : 49 Report #: [id number] Her performance on the MMSE 2 brief version is extremely low with a raw score of 12 of 16, which is a T score of 27 and percentile rank of 1. She was 3/3 for initial registration, 3/5 for orientation to time, 5/[address], and 1/3 for immediate recall of 3 items after a brief time delay and distraction. Her performance on the MMSE 2 standard version was extremely low with a raw score at 20 of 30 and a T score of 21. She was 0/5 for serial 7's. The patient was unable to accurately copy a simple geometric design. Difficulty with clock drawing is also noted in regard to organization and planning. Category fluency was extremely low with a raw score of 17 and a T score of 19. Abstract reasoning test was extremely low with a raw score at 2 of 8. This type of presentation suggests a severe cognitive disorder. Impairment with immediate recall, sustained concentration and attention and executive functioning are suggested. DIAGNOSTIC IMPRESSION: Major neurocognitive disorder (dementia), unspecified, with intermittent irritability -- extent to be determined, moderate to severe at this time. Unspecified depressive disorder. RECOMMENDATIONS: I was unable to contact a collateral source for additional information about her background and level of functioning prior to the assessment. At this time, cognitive impairment is severe. I am unable to determine if she was actually independent with activities of daily living. 24-hour care is necessary at this time with assistance in medical, financial and nutritional support. Repetition and written information will be necessary during rehab. Consider the use of a memory/orientation notebook. A followup neuropsychological evaluation is indicated upon discharge. A neuropsych assessment will assist in clarification of cognitive symptoms as well as assist in diagnosis of a neurodegenerative disorder. Thank you very much for allowing me to provide the consultation on this patient. <ELECTRONICALLY SIGNED> By: Maxwell Glasgow, PhD 09/04/17 1834 1350 Maxwell Glasgow, PhD /nt
[2017-08-28] MEDS ORDERED: VANCOMYCIN HCL10 GM PO (16:31)
[2017-08-28] MEDS ORDERED: DUONEB 2.5-0.5 M3 ML INH (16:31)
[2017-08-28] MEDS ORDERED: LISINOPRIL5 MG PO (16:32)
[2017-08-28] MEDS ORDERED: ALDACTONE25 MG PO (16:32)
[2017-08-28] MEDS ORDERED: COREG6.25 MG PO (16:32)
[2017-08-28] MEDS ORDERED: TYLENOL325 MG PO (16:32)
[2017-08-28] MEDS ORDERED: BUSPIRONE HCL10 MG PO (16:33)
[2017-08-28] MEDS ORDERED: PEPCID20 MG PO (16:33)
[2017-08-28] MEDS ORDERED: ATIVAN1 MG PO (16:33)
[2017-08-28] MEDS ORDERED: TORSEMIDE10 MG PO (16:33)
[2017-08-28] MEDS ORDERED: PROBIOTIC1 EAC1 PO (16:33)
[2017-08-28] MEDS ORDERED: MUCINEX600 MG PO (16:33)
[2017-08-28 18:45] VITALS: BP 122/71
[2017-08-28 20:10] VITALS: BP 129/63
[2017-08-29 04:32] LABS: HEMATOCRIT 28.1 % (37.0-47.0); HEMOGLOBIN 9.9 gm/dL (12.0-15.0); MCH 32.5 pg (26.0-34.0); MCHC 35.1 g/dL (28.0-37.0); MCV 92.5 fL (80.0-100.0); RBC 3.03 mil/uL (4.20-5.00); RDW 14.6 % (10.5-14.5); WBC 10.7 thou/uL (4.0-11.0)
[2017-08-29 04:43] LABS: CALCIUM 7.3 mg/dL (8.5-10.1); CREATININE 1.1 mg/dL (0.6-1.0); POTASSIUM 3.5 mmol/L (3.5-5.1)
[2017-08-29 10:30] VITALS: BP 101/64
[2017-08-29 13:40] LABS: % SATURATION 111 % (20-39); IRON 72 ug/dL (50-170); TIBC 65 ug/dL (250-450)
[2017-08-29 20:05] VITALS: BP 126/73
[2017-08-30 08:30] VITALS: BP 147/74
[2017-08-30 19:33] VITALS: BP 121/67
[2017-08-31 06:20] LABS: HEMOGLOBIN 8.7 gm/dL (12.0-15.0); MCH 32.2 pg (26.0-34.0); MCV 92.3 fL (80.0-100.0); RBC 2.71 mil/uL (4.20-5.00); RDW 14.3 % (10.5-14.5); WBC 10.1 thou/uL (4.0-11.0)
[2017-08-31 06:33] LABS: CALCIUM 7.7 mg/dL (8.5-10.1); CREATININE 1.1 mg/dL (0.6-1.0); POTASSIUM 3.1 mmol/L (3.5-5.1)
[2017-08-31 08:26] VITALS: BP 102/68
[2017-08-31 19:25] VITALS: BP 104/57
[2017-09-01 03:38] LABS: CALCIUM 7.5 mg/dL (8.5-10.1)
[2017-09-01 03:44] LABS: HEMATOCRIT 24.7 % (37.0-47.0); HEMOGLOBIN 8.6 gm/dL (12.0-15.0); MCH 32.4 pg (26.0-34.0); MCHC 34.9 g/dL (28.0-37.0); RBC 2.66 mil/uL (4.20-5.00); RDW 14.3 % (10.5-14.5); WBC 10.7 thou/uL (4.0-11.0)
[2017-09-01 08:04] VITALS: BP 127/83
[2017-09-01 08:40] VITALS: BP 119/71
[2017-09-01 08:41] VITALS: BP 92/64
[2017-09-01 20:02] VITALS: BP 121/57
[2017-09-02 06:58] VITALS: BP 131/77
[2017-09-02 21:05] VITALS: BP 128/76
[2017-09-03 07:26] LABS: CALCIUM 7.8 mg/dL (8.5-10.1); CREATININE 1.1 mg/dL (0.6-1.0); POTASSIUM 3.5 mmol/L (3.5-5.1)
[2017-09-03 08:50] VITALS: BP 134/55
[2017-09-03 20:31] VITALS: BP 92/55
[2017-09-04 08:30] VITALS: BP 126/80
[2017-09-04 20:00] VITALS: BP 135/72
[2017-09-05 05:04] LABS: ABSOLUTE RETIC COUNT 0.068 10^6/uL; OBSERVED RETIC COUNT 2.46 % (0.6-2.6)
[2017-09-05 05:05] LABS: HEMATOCRIT 24.7 % (37.0-47.0); HEMOGLOBIN 8.6 gm/dL (12.0-15.0); MCH 32.3 pg (26.0-34.0); MCHC 34.9 g/dL (28.0-37.0); MCV 92.6 fL (80.0-100.0); PLATELET COUNT 269 thou/uL (150-400); RBC 2.67 mil/uL (4.20-5.00)
[2017-09-05 05:15] LABS: CALCIUM 7.9 mg/dL (8.5-10.1); CREATININE 1.4 mg/dL (0.6-1.0); POTASSIUM 3.1 mmol/L (3.5-5.1)
[2017-09-05 07:00] LABS: ABSOLUTE NEUTROPHILS 7.9 thou/uL (1.4-8.2); METAMYELOCYTES 1 %; PROMYELOCYTES 1 %
[2017-09-05 07:30] VITALS: BP 111/72
[2017-09-05 12:11] LABS: IgA 453 mg/dL (87-352); IgG 835 mg/dL (700-1600)
[2017-09-05 19:55] VITALS: BP 97/42
[2017-09-05 20:02] VITALS: BP 110/48
[2017-09-06 04:37] LABS: CALCIUM 8.1 mg/dL (8.5-10.1); CREATININE 1.3 mg/dL (0.6-1.0); MAGNESIUM 1.4 mg/dL (1.8-2.4)
[2017-09-06 04:44] LABS: POTASSIUM 4.6 mmol/L (3.5-5.1)
[2017-09-06 07:30] VITALS: BP 109/69
[2017-09-06 09:15] LABS: IgM 63 mg/dL (26-217)
[2017-09-06 19:36] VITALS: BP 90/55
[2017-09-07 04:18] LABS: HEMATOCRIT 24.2 % (37.0-47.0); HEMOGLOBIN 8.3 gm/dL (12.0-15.0); MCH 32.1 pg (26.0-34.0); MCHC 34.4 g/dL (28.0-37.0); MCV 93.5 fL (80.0-100.0); RBC 2.59 mil/uL (4.20-5.00); RDW 15.3 % (10.5-14.5); WBC 12.8 thou/uL (4.0-11.0)
[2017-09-07 04:32] LABS: CALCIUM 8.4 mg/dL (8.5-10.1); CREATININE 1.3 mg/dL (0.6-1.0); POTASSIUM 4.7 mmol/L (3.5-5.1)
[2017-09-07 08:45] VITALS: BP 96/59
[2017-09-07 11:11] LABS: GLOBULIN TOTAL 2.8 g/dL (2.2-3.9); M-SPIKE Not Observed g/dL (Not Observed)
[2017-09-08 08:00] VITALS: BP 129/79
[2017-09-08 20:20] VITALS: BP 118/76
[2017-09-09 06:27] LABS: HEMATOCRIT 23.1 % (37.0-47.0); HEMOGLOBIN 7.7 gm/dL (12.0-15.0); MCH 31.3 pg (26.0-34.0); MCHC 33.2 g/dL (28.0-37.0); MCV 94.2 fL (80.0-100.0); RBC 2.45 mil/uL (4.20-5.00); RDW 16.1 % (10.5-14.5); WBC 12.9 thou/uL (4.0-11.0)
[2017-09-09 08:30] VITALS: BP 114/57
[2017-09-09 20:30] VITALS: BP 111/60
[2017-09-10 05:04] LABS: ABSOLUTE NEUTROPHILS 7.9 thou/uL (1.4-8.2); BASOPHILS 0.8 % (0.0-2.0); EOSINOPHILS 1.9 % (0.0-3.0); HEMATOCRIT 23.1 % (37.0-47.0); HEMOGLOBIN 7.9 gm/dL (12.0-15.0); LYMPHOCYTES 25.8 % (24.0-44.0); MCH 31.9 pg (26.0-34.0); MCHC 34.1 g/dL (28.0-37.0); MCV 93.4 fL (80.0-100.0); MONOCYTES 8.7 % (1.0-8.0); PLATELET COUNT 411 thou/uL (150-400); POLYS 62.8 % (36.0-66.0); RBC 2.47 mil/uL (4.20-5.00); RDW 16.1 % (10.5-14.5); WBC 12.6 thou/uL (4.0-11.0)
[2017-09-10 05:10] LABS: CALCIUM 8.3 mg/dL (8.5-10.1); CREATININE 1.1 mg/dL (0.6-1.0); POTASSIUM 4.2 mmol/L (3.5-5.1)
[2017-09-10 10:27] VITALS: BP 123/84
[2017-09-10 20:16] VITALS: BP 94/37
[2017-09-11 04:18] LABS: HEMATOCRIT 22.6 % (37.0-47.0); HEMOGLOBIN 7.7 gm/dL (12.0-15.0); MCH 31.7 pg (26.0-34.0); MCHC 34.1 g/dL (28.0-37.0); MCV 92.8 fL (80.0-100.0); RBC 2.44 mil/uL (4.20-5.00); RDW 15.7 % (10.5-14.5); WBC 10.8 thou/uL (4.0-11.0)
[2017-09-11 04:23] LABS: OBSERVED RETIC COUNT 2.26 % (0.6-2.6)
[2017-09-11 08:00] VITALS: BP 126/79
[2017-09-11 15:35] LABS: ALBUMIN 1.9 g/dL (3.4-5.0); DIRECT BILIRUBIN 0.2 mg/dL (<0.1-0.3); TOTAL BILIRUBIN 0.4 mg/dL (<0.1-1.0); TOTAL PROTEIN 5.2 g/dL (6.4-8.2)
[2017-09-11] MEDS ORDERED: VANCOCIN 125 M125 M1 PO (16:02)
[2017-09-11] MEDS ORDERED: PANTOPRAZOLE SO40 M1 PO (16:02)
[2017-09-11] MEDS ORDERED: MEGESTROL40 MG/1 M1 PO (16:02)
[2017-09-11] MEDS ORDERED: REMERON15 MG PO (16:02)
[2017-09-11 19:47] VITALS: BP 98/62
[2017-09-12 08:15] VITALS: BP 118/68
== END 2017-09-12 16:16 | DRG 947 ==
PROVIDERS: Hospitalist; Internal Medicine; Internal Medicine Hematology & Oncology; Nurse Practitioner; Nurse Practitioner Family; Physical Medicine & Rehabilitation
DX: R53.81 Other malaise (principal); E43 Unspecified severe protein-calorie malnutrition; J90 Pleural effusion, not elsewhere classified; Z68.1 Body mass index [BMI] 19.9 or less, adult; E87.2 Acidosis; A04.71 Enterocolitis due to Clostridium difficile, recurrent; D61.9 Aplastic anemia, unspecified; R10.9 Unspecified abdominal pain; R13.10 Dysphagia, unspecified; M19.90 Unspecified osteoarthritis, unspecified site; I10 Essential (primary) hypertension; F41.9 Anxiety disorder, unspecified; F32.9 Major depressive disorder, single episode, unspecified; K58.0 Irritable bowel syndrome with diarrhea; F17.210 Nicotine dependence, cigarettes, uncomplicated; D72.829 Elevated white blood cell count, unspecified; D69.6 Thrombocytopenia, unspecified; I25.5 Ischemic cardiomyopathy; K76.0 Fatty (change of) liver, not elsewhere classified; R68.81 Early satiety; F01.50 Vascular dementia, unspecified severity, without behavioral disturbance, psychotic disturbance, mood disturbance, and anxiety; I95.1 Orthostatic hypotension; Z98.42 Cataract extraction status, left eye; D63.8 Anemia in other chronic diseases classified elsewhere; R11.0 Nausea; Z98.41 Cataract extraction status, right eye; Z90.49 Acquired absence of other specified parts of digestive tract; Z87.81 Personal history of (healed) traumatic fracture; Z88.2 Allergy status to sulfonamides; Z88.6 Allergy status to analgesic agent; Z88.8 Allergy status to other drugs, medicaments and biological substances; Z82.49 Family history of ischemic heart disease and other diseases of the circulatory system; Z82.5 Family history of asthma and other chronic lower respiratory diseases; Z79.899 Other long term (current) drug therapy
CPT/HCPCS: 10112

== ENCOUNTER → 2017-10-11 | Outpatient (CLI) | payer OTHER ==
[~2017-10-11] MED LIST: ALDACTONE25 MG PO; ATIVAN1 MG PO; BUSPIRONE HCL10 MG PO; COREG6.25 MG PO; DUONEB 2.5-0.5 M3 ML INH; LISINOPRIL5 MG PO; MEGESTROL40 MG/1 M1 PO; MUCINEX600 MG PO; PANTOPRAZOLE SO40 M1 PO; PEPCID20 MG PO; PROBIOTIC1 EAC1 PO; REMERON15 MG PO; TORSEMIDE10 MG PO; TYLENOL325 MG PO; VANCOCIN 125 M125 M1 PO; VANCOMYCIN HCL10 GM PO
== END ==
LOC: SEN 08:24
DX: A04.71 Enterocolitis due to Clostridium difficile, recurrent (principal)